=== PATIENT | female | born 1940 | race Caucasian/White ===

== ENCOUNTER 2020-04-22 16:16 | Emergency (ER) | payer MEDICARE, BC ==
[~2020-04-22] VITALS: Ht 162.6 cm; Wt 69.1 kg
[~2020-04-22 16:16] MED LIST: ACIPHEX20 MG PO; ALPRAZOLAM0.5 MG PO; ATENOLOL50 MG PO; BENICAR40 MG PO; BUSPAR DIVIDOSE15 MG PO; CALAN SR180 MG PO; CATAPRES 0.1MG0.1 MG PO; CATAPRES-T0.3 MG/24 TD; CELEBREX 200MG200 MG PO; CELEXA 20MG20 MG/TAB PO; CENTRUM SILVER1 TA1 PO; CIPRO 500MG TA500 MG PO; COZAAR100 MG PO; DARVOCET-N-101 UDTAB PO; DIOVAN160 MG PO; DIOVAN320 MG PO; EXFORGE 5/160 PO; EXFORGE PO; FIORICET 325 MG1 TA1 PO; FISH OIL CONC1000 MG PO; FISH OIL500 MG PO; FLEXERIL 1010 MG/TAB PO; GABAPENTIN100 M1 PO; GARLIC SUPPLEM300 MG PO; GARLIC1 TAB PO; GARLIQUE PO; GARLIQUE400 MG PO; GUAIFENESIN PO; HYDROCODONE PO; LASIX 20MG TABL20 MG PO; LASIX 40MG TABL40 MG PO; LASIX PO; LECITHIN; LECITHIN PO; LECITHIN SUPER420 MG PO; LEVOTHROID0.125 MG PO; LEVOTHYROXINE0.1 MG PO; LEVOXYL0.1 MG PO; LEVOXYL0.125 MG PO; LEVOXYL0.15 MG PO; LOVAZA1 GM PO; MIRALAX119G PO; MS CONTIN 115 MG/TAB PO; MS CONTIN 330 MG/TAB PO; NEURONTIN100 MG/CAP PO; NEURONTIN300 MG/CAP PO; NORVASC 5MG5 MG/TAB PO; OMEGA-31000 MG PO; OXY IR5 MG PO; REMERON30 MG PO; ROXICODONE15 MG PO; SYNTHROID0.1 MG/TAB PO; TYLENOL 325MG325 MG PO; TYLENOL ARTHRITIS PO; ULTRAM 50MG TAB50 MG PO; VENOFER IV; VITAMIN C500 MG PO; VITAMIN D; VITAMIN D 400400 IU PO; VITAMIN D PO; WELLBUTRIN XL300 M1 PO; XANAX .25M0.25 MG/TA PO; XANAX 0.5MG0.5 MG PO; XANAX0.25 MG PO
[2020-04-22 16:57] LABS: ARTERIAL BLD GAS O2 SATURATION 93.7 % (92-100); ARTERIAL BLD GAS TCO2 CT 16.9; ARTERIAL BLOOD GAS BASE EXCESS -15.5 (-2-2); ARTERIAL BLOOD GAS HCO3 15.2 meq/L (22-26); ARTERIAL BLOOD GAS PCO2 56.3 mmHg (35-45); ARTERIAL BLOOD GAS PO2 81.2 mmHg (80-100)
[2020-04-22 16:58] LABS: ARTERIAL BLOOD GAS pH 7.05 (7.35-7.45)
[2020-04-22 17:17] LABS: HEMATOCRIT 45.6 % (37.0-47.0); HEMOGLOBIN 14.2 g/dl (12.5-16.0); MEAN CELL VOLUME 110 fl (80.0-100.0); MEAN CORPUSCULAR HEMOGLOBIN 34 pg (27.0-31.0); MEAN CORPUSCULAR HGB CONC 31 g/dl (33.0-37.0); MEAN PLATELET VOLUME 10.1 fl (7.4-10.4); PLATELET COUNT 339 K/mm3 (130-400); RED BLOOD COUNT 4.15 M/mm3 (4.10-5.30); REDCELL DISTRIBUTION WIDTH-CV 14.9 % (11.5-14.5)
[2020-04-22 17:27] LABS: ALBUMIN 4.5 gm/dL (3.5-5.0); BILIRUBIN,TOTAL 0.5 mg/dL (0.0-1.0); CALCIUM 9.7 mg/dL (8.4-10.2); CREATININE, serum 4.66 (0.52-1.25); POTASSIUM 5.2 mmol/L (3.4-5.0); TOTAL PROTEIN 8.2 gm/dL (6.4-8.2)
[2020-04-22 17:30] LABS: COLLECTION METHOD CATHETER
[2020-04-22 17:36] LABS: ANISOCYTOSIS 1+; BAND 4 % (0-10); LYMPHOCYTE 7 % (20.0-51.0); NEUTROPHILS 88 % (42.0-75.2); PLATELET ESTIMATE NORMAL (NORMAL)
[2020-04-22 17:40] LABS: MUCOUS Present /lpf; PH 5 (5-8); SQUAMOUS EPITHELIAL 0-2 /hpf; URINE APPEARANCE Cloudy; URINE BACTERIA Rare /hpf; URINE BILIRUBIN Negative (NEGATIVE); URINE BLOOD 2+ (NEGATIVE); URINE COLOR Yellow; URINE GLUCOSE Negative (NEGATIVE); URINE KETONE Negative (NEGATIVE); URINE LEUKOCYTE ESTERASE 3+ (NEGATIVE); URINE NITRATE Positive (NEGATIVE); URINE PROTEIN(semi-quant) 2+ (NEGATIVE); URINE UROBILINOGEN Negative (NEGATIVE)
[2020-04-22 17:54] LABS: TROPONIN-I 7.24 ng/mL (0.000-0.035)
[2020-04-22 18:01] LABS: INR 1.1 (0.8-3.0); PROTHROMBIN TIME 11.9 SECONDS (9.7-12.8)
[2020-04-22 18:03] LABS: PARTIAL THROMBOPLASTIN TIME 29.1 SECONDS (26.0-37.0)
[2020-04-22 19:15] LABS: ARTERIAL BLD GAS O2 SATURATION 94.7 % (92-100); ARTERIAL BLOOD GAS BASE EXCESS -13.9 (-2-2); ARTERIAL BLOOD GAS HCO3 12.9 meq/L (22-26); ARTERIAL BLOOD GAS PCO2 33.5 mmHg (35-45); ARTERIAL BLOOD GAS PO2 75.2 mmHg (80-100); ARTERIAL BLOOD GAS pH 7.21 (7.35-7.45)
[2020-04-22 20:26] VITALS: BP 96/65; PULSE 66; TEMP 97.6
== END 2020-04-22 20:29 | disposition short-term general hospital (02) ==
LOC: COL.ER 16:16
PROVIDERS: Emergency Medicine
DX: J96.90 Respiratory failure, unspecified, unspecified whether with hypoxia or hypercapnia (principal); I21.4 Non-ST elevation (NSTEMI) myocardial infarction; I11.0 Hypertensive heart disease with heart failure; I50.9 Heart failure, unspecified; N19 Unspecified kidney failure; Z20.828 Contact with and (suspected) exposure to other viral communicable diseases; Z88.2 Allergy status to sulfonamides; Z79.01 Long term (current) use of anticoagulants
CPT/HCPCS: J0330; J0696; J1644; J1940; J2250

== ENCOUNTER → 2020-05-02 | Outpatient (CLI) | payer MEDICARE, BC | LOC: COL.VAS 13:15 | DX: N18.4 Chronic kidney disease, stage 4 (severe) (principal) ==

== ENCOUNTER 2020-06-12 01:34 | Inpatient (IN) | payer MEDICARE, BC ==
[~2020-06-12] VITALS: Ht 160 cm; Wt 70.4 kg
[2020-06-12] VITALS (621 sets, daily range): BP systolic 87–141; BP diastolic 43–78; PULSE 45–70; TEMP 97.1–98.7; O2SAT 31–100
[2020-06-12 02:07] LABS: BASO % 0.3 % (0.0-2.0); EOS % 0.1 % (0-4.0); GRAN # 8.7 (1.4-6.5); GRAN % 79.3 % (42.2-75.2); HEMOGLOBIN 11.1 g/dl (12.5-16.0); LYMPH # 1.5 (1.2-3.4); LYMPH % 13.2 % (20.0-51.0); MEAN CELL VOLUME 105 fl (80.0-100.0); MEAN CORPUSCULAR HEMOGLOBIN 33 pg (27.0-31.0); MEAN CORPUSCULAR HGB CONC 31 g/dl (33.0-37.0); MEAN PLATELET VOLUME 11.1 fl (7.4-10.4); MONO # 0.8 (0.1-0.6); MONO % 6.8 % (1.7-9.3); PLATELET COUNT 284 K/mm3 (130-400); REDCELL DISTRIBUTION WIDTH-CV 14.5 % (11.5-14.5)
[2020-06-12 02:09] LABS: HEMATOCRIT 35.6 % (37.0-47.0)
[2020-06-12 02:12] LABS: INR 1.2 (0.8-3.0); PROTHROMBIN TIME 13.7 SECONDS (9.7-12.8)
[2020-06-12 02:15] LABS: ALBUMIN 4.2 gm/dL (3.5-5.0); BILIRUBIN,TOTAL 0.7 mg/dL (0.0-1.0); CALCIUM 9.5 mg/dL (8.4-10.2); CREATININE, serum 7.06 (0.52-1.25)
[2020-06-12 02:17] LABS: POTASSIUM 7.4 mmol/L (3.4-5.0)
[2020-06-12 02:29] LABS: TROPONIN-I 0.276 ng/mL (0.000-0.035)
[2020-06-12 02:56] LABS: ARTERIAL BLD GAS O2 SATURATION 91.3 % (92-100); ARTERIAL BLD GAS TCO2 CT 27.4; ARTERIAL BLOOD GAS BASE EXCESS -1.4 (-2-2); ARTERIAL BLOOD GAS HCO3 25.8 meq/L (22-26); ARTERIAL BLOOD GAS PCO2 54.8 mmHg (35-45); ARTERIAL BLOOD GAS PO2 69.3 mmHg (80-100); ARTERIAL BLOOD GAS pH 7.29 (7.35-7.45)
[2020-06-12 04:15] LABS: CALCIUM 9.3 mg/dL (8.4-10.2); CREATININE, serum 6.78 (0.52-1.25)
[2020-06-12 04:16] LABS: POTASSIUM 6.7 mmol/L (3.4-5.0)
[2020-06-12 04:46] LABS: COLLECTION METHOD CLEAN CATCH
[2020-06-12 04:54] LABS: MUCOUS Present /lpf; PH 5 (5-8); URINE APPEARANCE Hazy; URINE BACTERIA Rare /hpf; URINE BILIRUBIN Negative (NEGATIVE); URINE BLOOD Negative (NEGATIVE); URINE COLOR Amber; URINE GLUCOSE Negative (NEGATIVE); URINE KETONE Negative (NEGATIVE); URINE LEUKOCYTE ESTERASE Negative (NEGATIVE); URINE NITRATE Negative (NEGATIVE); URINE PROTEIN(semi-quant) 1+ (NEGATIVE); URINE RBC 0-2 /hpf; URINE UROBILINOGEN Negative (NEGATIVE)
[2020-06-12 05:07] LABS: ARTERIAL BLD GAS O2 SATURATION 97.6 % (92-100); ARTERIAL BLD GAS TCO2 CT 20.8; ARTERIAL BLOOD GAS BASE EXCESS -3.3 (-2-2); ARTERIAL BLOOD GAS HCO3 19.9 meq/L (22-26); ARTERIAL BLOOD GAS PCO2 29.7 mmHg (35-45); ARTERIAL BLOOD GAS PO2 101.1 mmHg (80-100); ARTERIAL BLOOD GAS pH 7.44 (7.35-7.45)
--- NOTE | 2020-06-12 05:45 | NUR ---
PATIENT ARRIVES FROM ER, BEING PACED 50 MA BY 50 RATE, MONITOR SHOWS CAPTURE, PATIENT EXTREMITIES ARE COLD AND PALE TO TOUCH, PULSES WEAK IN RADIAL AREAS, FINGER NAIL BEDS PATTERSON, IV SODIUM BICARB INFUSING INTO RIGHT FOREARM, KETAMINE INFUSING INTO RIGHT EXTERNAL JUGULAR, PATIENT UNRESPONSIE RESPONDING TO THE VENTIALTON ONLY, MAINTAINING A B/P OF 110 SYSTOLIC, KAYEXELATE 15 GM ADMINISTERED INTO OG., WAS THEN NOTIFIED OF NO CHEST XRAY DONE, ONE ORDERED, PATIENT BEGINBS MOVING WRISTS AND FLUTERING EYE LIDS, IV PROPOFOLOL ORDERED AND ADMINISTERED IV AT 20 MCQ/KG/MIN. DR ENG IN ROOM PLACEING A LINE FOR DIAylsis INTO LEFT FEMORIS AREA, NURSES REPORT GIVEN TO SARAH MA, DR ALBERTINA MARR, SUKHDEEP DIAYLSIS NURSE ALL PRESENT
--- NOTE | 2020-06-12 07:25 | NUR ---
Report received from Jairo MA and care resumed. Pt getting dialyis at this time and Dr Eaton is at bedside.
--- NOTE | 2020-06-12 07:54 | NUR ---
Verbal order from Dr Eaton to decrease propofol due to low BP.
--- NOTE | 2020-06-12 08:15 | NUR ---
Dr Santiago at bedside and given update as requested.
[2020-06-12 08:27] LABS: CALCIUM 8.1 mg/dL (8.4-10.2); CREATININE, serum 3.53 (0.52-1.25)
[2020-06-12 08:33] LABS: POTASSIUM 3.1 mmol/L (3.4-5.0)
--- NOTE | 2020-06-12 11:24 | NUR ---
Manager Cardiac was able to stand outside of door and pray for patient.
--- NOTE | 2020-06-12 17:10 | NUR ---
PT OPENS EYES TO VOICE AND FOLLOWS ALL COMMANDS. EXPLAINED TO PT THAT SHE NEEDED TUNRED AND SHAKING HEAD NO, PROPOFOL INCREASED AT THIS TIME, NO NEURO CONCERNS.
[2020-06-12 17:57] LABS: HEPATITIS B SURFACE ANTIBODY <2.0 (()); HEPATITIS B SURFACE ANTIGEN Negative (Negative); HEPATITIS C VIRUS ANTIBODY Negative (Negative)
--- NOTE | 2020-06-12 19:24 | NUR ---
Report given to Jairo MA and care transfered.
[2020-06-12] MEDS ORDERED: ASPIRIN 81M81 MG/TA2 PO (21:11)
[2020-06-12] MEDS ORDERED: TYLENOL 500MG500 MG PO (21:13)
[2020-06-12] MEDS ORDERED: COREG 6.256.25 MG/TA PO (21:14)
[2020-06-12] MEDS ORDERED: PLAVIX 75MG TAB75 MG PO (21:16)
[2020-06-12] MEDS ORDERED: LASIX 80MG TABL80 MG PO ×2 (21:17→21:35)
[2020-06-12] MEDS ORDERED: HYCODAN 1.5 MG480 ML PO (21:20)
[2020-06-12] MEDS ORDERED: ZOFRAN 4MG T4 MG/TAB PO (21:21)
[2020-06-12] MEDS ORDERED: KLOR-CON20 MEQ PO (21:27)
[2020-06-12] MEDS ORDERED: NORCO 325 MG-51 TAB PO (21:28)
[2020-06-13] VITALS (762 sets, daily range): BP systolic 107–140; BP diastolic 52–85; PULSE 71–88; TEMP 97.3–98.6; O2SAT 84–100
[2020-06-13 00:43] LABS: ARTERIAL BLD GAS O2 SATURATION 93.3 % (92-100); ARTERIAL BLD GAS TCO2 CT 22.5; ARTERIAL BLOOD GAS BASE EXCESS 0.5 (-2-2); ARTERIAL BLOOD GAS HCO3 21.7 meq/L (22-26); ARTERIAL BLOOD GAS PCO2 24.6 mmHg (35-45); ARTERIAL BLOOD GAS PO2 64.9 mmHg (80-100); ARTERIAL BLOOD GAS pH 7.56 (7.35-7.45)
--- NOTE | 2020-06-13 00:49 | NUR ---
Called Patsy with ABG results. Received TORB to adjust tidal volume down to 400.
[2020-06-13 04:54] LABS: BASO # 0.1 (0.0-0.2); BASO % 0.9 % (0.0-2.0); EOS # 0.1 (0.0-0.7); EOS % 1.1 % (0-4.0); GRAN # 6.7 (1.4-6.5); HEMOGLOBIN 10.2 g/dl (12.5-16.0); LYMPH # 1.6 (1.2-3.4); LYMPH % 16.5 % (20.0-51.0); MEAN CORPUSCULAR HEMOGLOBIN 33 pg (27.0-31.0); MEAN CORPUSCULAR HGB CONC 33 g/dl (33.0-37.0); MEAN PLATELET VOLUME 10.7 fl (7.4-10.4); MONO # 1.2 (0.1-0.6); MONO % 12.3 % (1.7-9.3); PLATELET COUNT 226 K/mm3 (130-400); RED BLOOD COUNT 3.08 M/mm3 (4.10-5.30); REDCELL DISTRIBUTION WIDTH-CV 14.5 % (11.5-14.5)
[2020-06-13 04:58] LABS: HEMATOCRIT 30.5 % (37.0-47.0); MEAN CELL VOLUME 99 fl (80.0-100.0)
[2020-06-13 05:04] LABS: CALCIUM 8.4 mg/dL (8.4-10.2); CREATININE, serum 4.69 (0.52-1.25); MAGNESIUM 2.2 mg/dL (1.6-2.3); PHOSPHOROUS 4.9 mg/dL (2.5-4.5); POTASSIUM 3.5 mmol/L (3.4-5.0)
[2020-06-13 05:14] LABS: ARTERIAL BLD GAS O2 SATURATION 86.2 % (92-100); ARTERIAL BLD GAS TCO2 CT 22.9; ARTERIAL BLOOD GAS BASE EXCESS -0.8 (-2-2); ARTERIAL BLOOD GAS PCO2 29.9 mmHg (35-45); ARTERIAL BLOOD GAS PO2 51.6 mmHg (80-100); ARTERIAL BLOOD GAS pH 7.48 (7.35-7.45)
--- NOTE | 2020-06-13 05:35 | NUR ---
PATIENT ON VACATION SEDATION FOR 30 MINUTES WAS CAUGHT PULLING ON ET TUBE AWAKE ALERT AND FOLLOWS DIRECTIONS, SEDATION BACK UP TO 25 MCQ/KG/MIN
--- NOTE | 2020-06-13 07:05 | NUR ---
RECEIVED REPORT FROM FRANCESCA WEEMS. PT RESTING EASILY ON CURRENT VENT SETTINGS: AC, FIO2 45%, PEEP 5, RR 18, TV 400. FC PATENT AND DRAINING TO GRAVITY. OGT AT 60 CM TO LIS. OIL WELL SERVICE OPERATOR HELPER IN PLACE. VSS. SEE GTT FLOWSHEET.
--- NOTE | 2020-06-13 08:39 | NUR ---
DR TERAN NOTIFIED OF COVID TEST NEGATIVE, STATES TAKE PT OFF ISOLATION PRECAUTIONS. PHYSICIAN ALSO REQUESTS SEEDATION TO BE TURNED OFF AND TELL RT TO PREPARE FOR EXTUBATION. MANOHAR RT NOTIFIED.
--- NOTE | 2020-06-13 09:40 | NUR ---
SPOKE WITH VERONICA FROM [facility]AG [facility] AND MADHU KERR'S RN ABOUT TUNNEL CATH PLACEMENT PROCEDURE PLANNED FOR 06/14/20 AT 0800.
--- NOTE | 2020-06-13 09:48 | NUR ---
EXTUBATED BY RT AT THIS TIME, OGT PULLED OUT WELL. PLACED ON 3L VIA NC. POX 93%. TOLERATING WELL. ALL OTHER VSS. PT OREINTED TO SURROUNDINGS AND UPDATED ON WHAT HAPPENED AND POC. NODS HEAD IN UNDERSTANDING. TUNG, SON, CALLED WHILE RN IN ROOM AND GOT TO TALK TO PT FOR A FEW MINUTES AND UPDATED ON POC AND CURRENT VISITIGN POLICIES IN THE HOSPITAL. PT VOICE VERY RASPY AT THIS TIME AND ENCOURAGED TO REST VOCAL CORDS FOR A BIT WITH EXTUBATION, PT NODS IN UNDERSTANDING.
--- NOTE | 2020-06-13 09:58 | NUR ---
PT EXTUBATED PER ORDERS FROM DR. TERAN. PLACED ON 3 LITERS NASAL CANNULA. TOLERATED EXTUBATION WELL.
--- NOTE | 2020-06-13 10:20 | NUR ---
O2 INCREASED TO 4L VIA NC, POX 89%. DR KERR AT BEDSIDE FOR ASSESSMENT, DICUSSING POC WITH PT. PT VERBALIZES UNDERSTANDING. DISCUSSED DIET, NURSING BEDSIDE SWALLOW, AND PAIN MEDICATIONS WITH PHYSICIAN. NEW ORDERS RECEIVED.
--- NOTE | 2020-06-13 10:41 | NUR ---
DR TERAN AT BEDSIDE FOR ASSESSMENT.
--- NOTE | 2020-06-13 11:07 | NUR ---
[employer] Consultant contacted patient's son, Edwin (ph#[phone]) to complete intake as patient was just extubated this morning. Per Edwin, patient lives alone in [place], [place] and sees Dr. Adrian for primary care. Patient uses [facility] in [place] and Edwin advised either he or his brother scrap picker patient's medications for her. Patient has walkers at home and her bathroom is also equipped with grab bars. Edwin advised patient gets around pretty well at home and though ADLS can be challenging for her, patient has been getting them done independently. Edwin states that he and his brother, Svetlana (ph#[phone]) take turns staying overnight with patient. Edwin also advised his niece, Svetlana's daughter Christal Bautista will soon be staying with patient during the week to provide additional support. Edwin advised that patient will likely need dialysis upon discharge. Edwin reports that between family and friends, they will arrange transportation to and from dialysis for patient. Patient is and has two sons, Edwin and Svetlana. Edwin advised he is DPOA-HC for patient and will fax over copy of DPOA-HC to SW. Edwin states at this time the plan is for patient to hopefully return home upon discharge. AHMET will continue to follow.
[2020-06-13 11:14] LABS: ARTERIAL BLD GAS O2 SATURATION 90.5 % (92-100); ARTERIAL BLD GAS TCO2 CT 25.3; ARTERIAL BLOOD GAS HCO3 23.9 meq/L (22-26); ARTERIAL BLOOD GAS PCO2 45.5 mmHg (35-45); ARTERIAL BLOOD GAS PO2 65.9 mmHg (80-100); ARTERIAL BLOOD GAS pH 7.34 (7.35-7.45)
--- NOTE | 2020-06-13 11:21 | NUR ---
DR TERAN AT BEDSIDE REQUESTING PT TO BE PLACED ON BIPAP R/T ABG RESULTS AND PT MORE ABDOMINAL BREATHING, RT BROUGHT MACHINE TO BEDSIDE AND PLACES SETTINGS 15/8, FIO2 35% PER PHYSICIANS REQUESTS. RT AWARE OF ABG IN TWO HOURS.
--- NOTE | 2020-06-13 11:30 | NUR ---
DR KERR AT BEDSIDE FOR ASSESSMENT AND UPDATED ON DR TOWNSEND ASSESSMENT. NEW ORDERS RECEIVED.
[2020-06-13 13:24] LABS: ARTERIAL BLD GAS O2 SATURATION 94.2 % (92-100); ARTERIAL BLD GAS TCO2 CT 26.2; ARTERIAL BLOOD GAS HCO3 24.8 meq/L (22-26); ARTERIAL BLOOD GAS PCO2 45.9 mmHg (35-45); ARTERIAL BLOOD GAS PO2 77.3 mmHg (80-100); ARTERIAL BLOOD GAS pH 7.35 (7.35-7.45)
--- NOTE | 2020-06-13 13:40 | NUR ---
ATTEMPTED TO CALL ABG RESULTS TO DR TERAN, NO ANSWER.
--- NOTE | 2020-06-13 14:13 | NUR ---
NOTIFIED DR TERAN OF ABG RESULTS, STATES WANTS A REPEAST ABG AT 1630 AND WILL REASSESS AT THAT TIME ABOUT POC , RT NOTIFIED.
[2020-06-13 16:35] LABS: ARTERIAL BLD GAS O2 SATURATION 97.3 % (92-100); ARTERIAL BLD GAS TCO2 CT 26.7; ARTERIAL BLOOD GAS BASE EXCESS 0.9 (-2-2); ARTERIAL BLOOD GAS HCO3 25.4 meq/L (22-26); ARTERIAL BLOOD GAS PCO2 40.3 mmHg (35-45); ARTERIAL BLOOD GAS PO2 98.3 mmHg (80-100); ARTERIAL BLOOD GAS pH 7.42 (7.35-7.45)
--- NOTE | 2020-06-13 16:57 | NUR ---
NURSING BEDSIDE SWALLOW PERFORMED, PT USES STRAW AND SWALLOWS PILLS WITHOUT ANY ISSUES AT THIS TIME. NO DROP IN POX NOTED WHILE BIPAP WAS OFF BRIEFLY TO TAKE MEDICATION.
--- NOTE | 2020-06-13 17:10 | NUR ---
DR TERAN NOTIFIED OF ABG RESULTS, STATES NO INTUBATION AT THIS TIME AND HAVE PT WEAR BIPAP TONIGHT AND WILL REEVALUATE PLACING ON NC TOMORROW AM. PT MADE AWARE OF POC AND VERBALIZED UNDERSTANDING.
--- NOTE | 2020-06-13 17:30 | NUR ---
SPOKE TO DR TERAN ABOUT STAYING ON BIPAP AND BICARB GTT THROGH THE NIGHT AND HE SAYS YES AND WILL REEVALUATE IN THE AM.
--- NOTE | 2020-06-13 21:10 | NUR ---
PATIENT ANXIOUS AND COMPLAINED OF MASK AND BRIDGE OF NOSE, SPECIFIC ASKS FOR xANAX, AND MY OXY CODONE, XANAX AND HYDROCODONE ADMINISTERED, PATIENT IS BACK TO SLEEP
[2020-06-14] VITALS (828 sets, daily range): BP systolic 113–144; BP diastolic 60–87; PULSE 86–98; TEMP 96.8–98.6; O2SAT 60–100
[2020-06-14 05:02] LABS: ARTERIAL BLD GAS O2 SATURATION 96.4 % (92-100); ARTERIAL BLD GAS TCO2 CT 28.8; ARTERIAL BLOOD GAS BASE EXCESS 2.6 (-2-2); ARTERIAL BLOOD GAS HCO3 27.5 meq/L (22-26); ARTERIAL BLOOD GAS PCO2 43.2 mmHg (35-45); ARTERIAL BLOOD GAS PO2 87.2 mmHg (80-100); ARTERIAL BLOOD GAS pH 7.42 (7.35-7.45)
[2020-06-14 05:05] LABS: BASO # 0.1 (0.0-0.2); BASO % 0.8 % (0.0-2.0); EOS # 0.2 (0.0-0.7); EOS % 2.4 % (0-4.0); GRAN # 5.3 (1.4-6.5); GRAN % 65.9 % (42.2-75.2); LYMPH # 1.5 (1.2-3.4); LYMPH % 19.1 % (20.0-51.0); MEAN CELL VOLUME 102 fl (80.0-100.0); MEAN CORPUSCULAR HGB CONC 32 g/dl (33.0-37.0); MEAN PLATELET VOLUME 10.4 fl (7.4-10.4); MONO # 0.9 (0.1-0.6); MONO % 11.7 % (1.7-9.3); PLATELET COUNT 216 K/mm3 (130-400); RED BLOOD COUNT 3.05 M/mm3 (4.10-5.30); REDCELL DISTRIBUTION WIDTH-CV 14.5 % (11.5-14.5)
[2020-06-14 05:06] LABS: INR 1.2 (0.8-3.0); PROTHROMBIN TIME 13.6 SECONDS (9.7-12.8)
[2020-06-14 05:07] LABS: HEMATOCRIT 31.1 % (37.0-47.0); HEMOGLOBIN 9.9 g/dl (12.5-16.0); MEAN CORPUSCULAR HEMOGLOBIN 32 pg (27.0-31.0)
[2020-06-14 05:13] LABS: CREATININE, serum 4.84 (0.52-1.25); MAGNESIUM 2.1 mg/dL (1.6-2.3); PHOSPHOROUS 7.3 mg/dL (2.5-4.5); POTASSIUM 3.1 mmol/L (3.4-5.0)
--- NOTE | 2020-06-14 07:10 | NUR ---
Report received from Jairo MA and care resumed.
--- NOTE | 2020-06-14 07:40 | NUR ---
Pt to senior label specialist at this time for tunnelled dialysis line placement.
--- NOTE | 2020-06-14 08:14 | NUR ---
SEE MERGE DOCUMENTATION FOR MEDICATION ADMINISTRATION TIMES AND INTRA/POST PROCEDURE SEDATION ASSESSMENTS.
[2020-06-14 13:00] LABS: IRON,SERUM 33 ug/dL (35-150)
[2020-06-14 13:09] LABS: TOTAL IRON BINDING CAPACITY 319 ug/dL (265-497)
--- NOTE | 2020-06-14 19:43 | NUR ---
Report given to Maia MA and care transfered.
[2020-06-15] VITALS (562 sets, daily range): BP systolic 109–146; BP diastolic 51–74; PULSE 81–100; TEMP 97.6–99.1; O2SAT 82–100
[2020-06-15 04:57] LABS: ARTERIAL BLD GAS O2 SATURATION 97.3 % (92-100); ARTERIAL BLD GAS TCO2 CT 27.5; ARTERIAL BLOOD GAS BASE EXCESS 1.1 (-2-2); ARTERIAL BLOOD GAS HCO3 26.2 meq/L (22-26); ARTERIAL BLOOD GAS PCO2 43.5 mmHg (35-45); ARTERIAL BLOOD GAS PO2 100.1 mmHg (80-100)
[2020-06-15 05:16] LABS: BASO # 0.1 (0.0-0.2); BASO % 0.7 % (0.0-2.0); EOS # 0.1 (0.0-0.7); EOS % 1.3 % (0-4.0); GRAN % 73.7 % (42.2-75.2); HEMOGLOBIN 10.7 g/dl (12.5-16.0); LYMPH # 1.3 (1.2-3.4); LYMPH % 13.8 % (20.0-51.0); MEAN CELL VOLUME 105 fl (80.0-100.0); MEAN CORPUSCULAR HEMOGLOBIN 32 pg (27.0-31.0); MEAN CORPUSCULAR HGB CONC 31 g/dl (33.0-37.0); MEAN PLATELET VOLUME 10.4 fl (7.4-10.4); MONO % 10.2 % (1.7-9.3); PLATELET COUNT 216 K/mm3 (130-400); RED BLOOD COUNT 3.33 M/mm3 (4.10-5.30); REDCELL DISTRIBUTION WIDTH-CV 14.3 % (11.5-14.5)
[2020-06-15 05:27] LABS: CALCIUM 8.8 mg/dL (8.4-10.2); CREATININE, serum 3.46 (0.52-1.25); MAGNESIUM 2.1 mg/dL (1.6-2.3); PHOSPHOROUS 6.9 mg/dL (2.5-4.5); POTASSIUM 3.7 mmol/L (3.4-5.0)
--- NOTE | 2020-06-15 07:01 | NUR ---
PT rested well throughout the night and asked questions about POC, all answered. PT son also updated earlier in the evening.
--- NOTE | 2020-06-15 17:00 | NUR ---
Patient to room 358 from ICU on medical floor bed. Patient A&Ox3. IV CDI. Dialysis catheter size right upper chest CDI, bruising around the site. Fistula NUNO CDI. Nurse oriented patient to location, room and call light. No further needs expressed from the patient. Call light within reach
--- NOTE | 2020-06-15 20:00 | NUR ---
Report received, assumed care for overnight houseperson. Assessment complete. VS stable. A&Ox3. C/O pain to back/neck-rating pain 8/10 on pain scale-described as constant throbbing. [place] given per dr order. Dyspnea on exertion. Pursed lip breathing-O2@2L/NC with O2 sats 92-94%. Right chest dialysis cath-dressing CDI. INT to left IJ-flushes without difficulty. Noted to have extensive bruising to right side of chest/shoulder/back. Voiding without difficulty post foster removal. Tolerating PO. Denies needs. Call light in reach. Will monitor.
--- NOTE | 2020-06-15 22:25 | NUR ---
Called stating she was having an anxiety attack-requesting PRN xanax dose. Given per dr vasquez. RT at bedside to apply BiPaP. This nurse sat with patient for approx 20minutes to help calm down. Resting with eyes closed. Will monitor.
[2020-06-16 03:15] VITALS: BP 137/69; PULSE 87; TEMP 98.3
--- NOTE | 2020-06-16 04:00 | NUR ---
Rested well later this shift after HS meds/xanax dosing. VS remain stable. Continues to wear BiPaP. No s/s of distress noted. Will monitor.
[2020-06-16 06:58] VITALS: BP 109/54; PULSE 77; TEMP 97.3
[2020-06-16 10:50] LABS: PLEURAL FLUID RBC 2000 /mm3 (0-0); PLEURAL FLUID WBC 199 /mm3
--- NOTE | 2020-06-16 10:56 | NUR ---
DR TERAN PERFORMED A THORA ON PATIENTS RIGHT LUNG, 900 ML OF FLUID TAKEN OFF. PATIENT TOLERATED WELL. PARUL WILL PERFORM ANOTHER THORA ON LEFT LUNG ON 06/17. XRAY PERFORMED, RESULTS PENDING. PATIENT TAKEN TO DIALYSIS. PATIENT REPORTED PAIN ON HER FISTULA WHICH IS LOCATED ON HER LEFT UPPER EXTREMITY. RATING A 9/10. FISTULA SLIGHTLY WARM, NO REDNESS, SWELLING, OR DISCHARGE PRESENT. WILL HAVE BEDROSE TAKE A LOOK AT IT. NORCO GIVEN. WILL CONTINUE TO MONITOR.
[2020-06-16 11:26] LABS: GLUCOSE,PLEURAL FLUID 123 mg/dL
[2020-06-16 11:27] LABS: PLEURAL FLUID COLOR YELLOW
[2020-06-16 11:28] LABS: PLEURAL FLUID APPEARANCE CLEAR
[2020-06-16 11:58] LABS: TOTAL PROTEIN,PLEURAL FLUID < 2.0 gm/dL
[2020-06-16 13:13] LABS: BASO % 0.5 % (0.0-2.0); EOS # 0.3 (0.0-0.7); EOS % 3.1 % (0-4.0); GRAN # 6.1 (1.4-6.5); GRAN % 74.6 % (42.2-75.2); LYMPH % 11.8 % (20.0-51.0); MEAN CELL VOLUME 104 fl (80.0-100.0); MEAN CORPUSCULAR HGB CONC 30 g/dl (33.0-37.0); MEAN PLATELET VOLUME 10.8 fl (7.4-10.4); MONO # 0.8 (0.1-0.6); MONO % 9.6 % (1.7-9.3); PLATELET COUNT 195 K/mm3 (130-400); RED BLOOD COUNT 3.07 M/mm3 (4.10-5.30); REDCELL DISTRIBUTION WIDTH-CV 13.9 % (11.5-14.5)
[2020-06-16 13:14] LABS: HEMOGLOBIN 9.7 g/dl (12.5-16.0); MEAN CORPUSCULAR HEMOGLOBIN 32 pg (27.0-31.0)
[2020-06-16 13:33] LABS: CALCIUM 8.6 mg/dL (8.4-10.2); CREATININE, serum 3.92 (0.52-1.25); POTASSIUM 3.5 mmol/L (3.4-5.0)
--- NOTE | 2020-06-16 14:48 | NUR ---
SPOKE WITH PATIENT'S SON REGARDING PATIENTS CURRENT CONDITION. EXPLAINED TO HIM THAT SHE RECIEVED A THORA THIS AM ON THE RIGHT LUNG AND THAT SHE WILL BE GETTING THE SAME PROCEDURE DONE 06/17 IN THE AM. EXPLAINED TO HIM THAT PATIENT IS CURRENTLY IN DYALISIS, BUT HAS BEEN DOING VERY WELL TODAY. PATIENT'S SON STATED THAT HE WILL CALL AND SPEAK WITH HER AT A LATER TIME.
[2020-06-16 15:30] VITALS: BP 112/56; PULSE 78; TEMP 98.4
--- NOTE | 2020-06-16 17:54 | NUR ---
PATIENT SITTING UP IN BED EATING. DENIES ANY FURTHER NEEDS AT THIS TIME. BED IN LOWEST POSITION, BED ALARM ON, CALL LIGHT WITHIN REACH. WILL CONTINUE TO MONITOR.
--- NOTE | 2020-06-16 19:15 | NUR ---
Report received, assumed care for steward/stewardess night. Assessment complete. VS stable. A&Ox3. C/O pain to back/neck-rating pain 01/27-[place] given per dr order. Right chest dialysis cath with tegaderm-CDI. IV to left IJ flushes without difficulty. O2 sat 94% on RA. Denies nausea. Noted to have bruising to right chest/shoulder and back. Plan of care discussed for this shift to include HS meds/BiPaP/calling for questions/concerns. Verbalizes understanding. Call light in reach/bed alarm on. Will monitor.
[2020-06-16 19:47] VITALS: BP 128/68; PULSE 106; TEMP 98.4
--- NOTE | 2020-06-16 22:25 | NUR ---
Called c/o "anxiety attack." Requesting xanax. Sat with patient for approx 30 minutes. Xanax given per dr order. Calmed down once BiPaP on. Call light in reach. Will monitor.
[2020-06-17] VITALS (14 sets, daily range): BP systolic 105–132; BP diastolic 50–72; PULSE 79–101; TEMP 97.9–99.2
--- NOTE | 2020-06-17 05:00 | NUR ---
Slept most of shift since receiving xanax and BiPaP being applied. Denied nausea. Received norco x1 for neck/back pain. Vitals remained stable. Call light in reach. WIll monitor.
[2020-06-17 12:13] LABS: PLEURAL FLUID RBC 0 /mm3 (0-0); PLEURAL FLUID WBC 146 /mm3
[2020-06-17 12:17] LABS: GLUCOSE,PLEURAL FLUID 127 mg/dL
[2020-06-17 12:18] LABS: PLEURAL FLUID APPEARANCE CLEAR; PLEURAL FLUID COLOR YELLOW
[2020-06-17 12:20] LABS: TOTAL PROTEIN,PLEURAL FLUID < 2.0 gm/dL
--- NOTE | 2020-06-17 19:08 | NUR ---
Patient has done well post thora, VSS. left EJ without complications. Eccymosis to LLQ noted. Edema to ASHTYN +2 pitting. Patient requested pain mediction this am for pain 5/10 generalized, medicaitons given per orders.
--- NOTE | 2020-06-17 21:00 | NUR ---
PT A/O X3, IN BED WITH HOB ELEVATED, C/O BACK PAIN, GAVE PRN NORCO FOR PAIN. PT ALSO REQUEST XANAX. PT'S RIGHT ARM STILL SWOLLEN. PT HAS NO FURTHER NEEDS, CALL LIGHT WITHIN REACH AND BED ALARM ON.
[2020-06-18 01:20] VITALS: BP 128/70; PULSE 88; TEMP 97.9
[2020-06-18 05:00] VITALS: BP 126/74; PULSE 84; TEMP 97
[2020-06-18 07:28] VITALS: BP 105/53; PULSE 80; TEMP 98.3
--- NOTE | 2020-06-18 07:55 | NUR ---
PT SLEPT WELL WITH NO ISSUES, CALL LIGHT WITHIN REACH AND BED ALARM ON.
[2020-06-18 10:04] LABS: BASO % 0.4 % (0.0-2.0); EOS # 0.4 (0.0-0.7); EOS % 4.6 % (0-4.0); GRAN # 6.7 (1.4-6.5); GRAN % 70.6 % (42.2-75.2); HEMOGLOBIN 10.3 g/dl (12.5-16.0); LYMPH # 1.5 (1.2-3.4); LYMPH % 16.1 % (20.0-51.0); MEAN CELL VOLUME 106 fl (80.0-100.0); MEAN CORPUSCULAR HEMOGLOBIN 32 pg (27.0-31.0); MEAN CORPUSCULAR HGB CONC 30 g/dl (33.0-37.0); MEAN PLATELET VOLUME 10.9 fl (7.4-10.4); MONO # 0.8 (0.1-0.6); PLATELET COUNT 198 K/mm3 (130-400); RED BLOOD COUNT 3.23 M/mm3 (4.10-5.30); REDCELL DISTRIBUTION WIDTH-CV 13.7 % (11.5-14.5)
[2020-06-18 10:05] LABS: HEMATOCRIT 34.3 % (37.0-47.0)
--- NOTE | 2020-06-18 10:09 | NUR ---
PT TOILETTED ON BEDSIDE COMMODE AND TRANSPORTED TO DIALYSIS VIA BED @ 0930.
[2020-06-18 10:13] LABS: CREATININE, serum 3.46 (0.52-1.25); POTASSIUM 3.7 mmol/L (3.4-5.0)
[2020-06-18] MEDS ORDERED: PHOSLO667 MG PO (11:26)
[2020-06-18] MEDS ORDERED: LASIX 80MG TABL80 MG PO (11:29)
[2020-06-18] MEDS ORDERED: PEPCID 20MG TAB20 MG PO (11:30)
--- NOTE | 2020-06-18 11:49 | NUR ---
plan to dc to home. taken off 1.5l nc for trial and dipped to 89% on RA at rest in less than 10 mins. coordinating with clinical social worker for home oxygen. pt still in dialysis.
[2020-06-18 12:02] VITALS: BP 117/63; PULSE 92; TEMP 98
--- NOTE | 2020-06-18 13:35 | NUR ---
PT SAT UP ON SIDE OF BED INDEPENDENTLY AFTER DIALYSIS DUE TO BACK HURTING. WAS ABLE TO AMBULATE FROM BED TO NEXT ROOM'S DOOR WITH STANDBY ASSIST AND WALKER. APPROX 40 FEET. NO HANDS-ON ASISSTANCE REQUIRED. PT DENIED SOB, HEADACHE, WEAKNESS. AMBULATED WITH HOME TENNIS SHOES.
--- NOTE | 2020-06-18 14:00 | NUR ---
AHMET spoke with son Edwin. Edwin provided that patient obtains HH services from [facility] agency. Documentation printed and faxed to [facility] for review. AHMET will continue to follow.
--- NOTE | 2020-06-18 14:02 | NUR ---
AHMET was informed by Dr. Eaton to assist in seeing if patient has a wheelchair to assist with transfers to dialysis. SW called patient's son Edwin and he provided that patient does have a wheelchair. SW to inform Dr. Eaton that patient does have a a wheelchair. AHMET will continue to follow.
--- NOTE | 2020-06-18 14:04 | NUR ---
AHMET spoke with son Edwin about support needed for patient upon DC. Edwin stated that he his , his brother and niece will be with patient to assist with continued care, family support and assistance to and from dialysis. AHMET will continue to follow.
[2020-06-18 14:13] LABS: ARTERIAL BLD GAS TCO2 CT 24.8; ARTERIAL BLOOD GAS BASE EXCESS 0.7 (-2-2); ARTERIAL BLOOD GAS HCO3 23.8 meq/L (22-26); ARTERIAL BLOOD GAS PCO2 33.5 mmHg (35-45); ARTERIAL BLOOD GAS PO2 59.8 mmHg (80-100); ARTERIAL BLOOD GAS pH 7.47 (7.35-7.45)
--- NOTE | 2020-06-18 14:40 | NUR ---
Pt ambulates to bathroom with walker and standby assist from this nurse without difficulties, pt did c/o pain in back while sitting on commode, Ultram given per orders/pt request. Pt had a large BM and then ambulates back to bed with walker and standby assist of this nurse. Denies any further needs at this time, 1.5L O2 via NC placed on per orders, bed alarm on and Call light within reach.
--- NOTE | 2020-06-18 14:52 | NUR ---
AHMET informed that patient did not qualify for home air. AHMET contacted Dr. Eaton and Dr. Eaton stated that he confirmed the information with Dr. Santiago. AHMET asked Dr. Eaton to assist with patient obtain HH orders for PT. Documentation faxed to [facility]. AHMET will continue to follow
--- NOTE | 2020-06-18 15:27 | NUR ---
ABG results reviewed by Dr Eaton per Kathryn in nursing home social worker and no recommendation for home oxygen. pt family to pick her up @ 1615 per Kathryn. pt excited to go home. seen by Dr Santiago and no Bipap recommendation either. pt agreeable with plan. ambulated to commode in bathroom standby assist by nurse Nikki
[2020-06-18 16:10] VITALS: BP 128/75; PULSE 102; TEMP 98.3
--- NOTE | 2020-06-18 16:59 | NUR ---
AHMET assisted with setting up oxygen for patient's home with [place]. Documentation faxed and family informed of plan. Updated information faxed to [facility]. Family here to assist with transfer. Nothing further.
--- NOTE | 2020-06-18 17:21 | NUR ---
discharge instructions reviewed with patient and with sons Svtelana and Edwin. informed of dialysis chair time and new scripts. Pharmacist Christian approved for this nurse to take extra doses of phoslo for pt to discharge with instead of pharmacy pre-packaging needed doses since she stated she is unable to pick remover her meds from pharmacy in [place] until family is available "after dinner". 3 extra doses given and family made aware. EJ IV dc'd without concerns. pt ambulated into vehicle with contact guard assist. sent home with oxygen tank from [facility] in [place] due to dipping to 88% on RA at rest. oxygen to be delivered to her home tonight per case management.
== END 2020-06-18 17:15 | disposition home or self-care (01) | DRG 673 ==
LOC: COL.ER 01:34 → ICU 05:08 → MEDICAL 06-15 12:00
PROVIDERS: Emergency Medicine; Internal Medicine Pulmonary Disease; ADMIT Internal Medicine Nephrology
PROC: 0JH63XZ Insertion of Tunneled Vascular Access Device into Chest Subcutaneous Tissue and Fascia, Percutaneous Approach (ICD-10-PCS; principal; 2020-06-12)
PROC: 02HV33Z Insertion of Infusion Device into Superior Vena Cava, Percutaneous Approach (ICD-10-PCS; 2020-06-12)
PROC: 5A1D70Z Performance of Urinary Filtration, Intermittent, Less than 6 Hours Per Day (ICD-10-PCS; 2020-06-12)
PROC: 0BH17EZ Insertion of Endotracheal Airway into Trachea, Via Natural or Artificial Opening (ICD-10-PCS; 2020-06-12)
PROC: 5A1945Z Respiratory Ventilation, 24-96 Consecutive Hours (ICD-10-PCS; 2020-06-12)
PROC: 0W993ZZ Drainage of Right Pleural Cavity, Percutaneous Approach (ICD-10-PCS; 2020-06-16)
PROC: 0W9B3ZZ Drainage of Left Pleural Cavity, Percutaneous Approach (ICD-10-PCS; 2020-06-16)
DX: N17.9 Acute kidney failure, unspecified (principal); J96.21 Acute and chronic respiratory failure with hypoxia; J96.22 Acute and chronic respiratory failure with hypercapnia; I50.22 Chronic systolic (congestive) heart failure; I13.2 Hypertensive heart and chronic kidney disease with heart failure and with stage 5 chronic kidney disease, or end stage renal disease; E87.2 Acidosis; E87.5 Hyperkalemia; N18.6 End stage renal disease; R00.1 Bradycardia, unspecified; M19.90 Unspecified osteoarthritis, unspecified site; F32.9 Major depressive disorder, single episode, unspecified; E03.9 Hypothyroidism, unspecified; F41.9 Anxiety disorder, unspecified; J44.9 Chronic obstructive pulmonary disease, unspecified; M81.0 Age-related osteoporosis without current pathological fracture; I95.9 Hypotension, unspecified; D63.1 Anemia in chronic kidney disease; Z20.828 Contact with and (suspected) exposure to other viral communicable diseases; Z87.891 Personal history of nicotine dependence; Z88.2 Allergy status to sulfonamides
CPT/HCPCS: J0610; J0690; J1170; J1644; J1815; J2250; J2704; J3010; J3480; J7030; J7050; J7070; Q5105

== ENCOUNTER 2020-10-20 10:37 | Inpatient (IN) | payer MEDICARE, BC ==
[~2020-10-20] VITALS: Ht 160 cm; Wt 58.5 kg
[2020-10-20] VITALS (343 sets, daily range): BP systolic 72–145; BP diastolic 42–79; PULSE 72–86; TEMP 98.5–99.5; O2SAT 86–98
[~2020-10-20 10:37] MED LIST changes: +ASPIRIN 81M81 MG/TA2 PO; +COREG 6.256.25 MG/TA PO; +HYCODAN 1.5 MG480 ML PO; +KLOR-CON20 MEQ PO; +LASIX 80MG TABL80 MG PO; +NORCO 325 MG-51 TAB PO; +PEPCID 20MG TAB20 MG PO; +PHOSLO667 MG PO; +PLAVIX 75MG TAB75 MG PO; +TYLENOL 500MG500 MG PO; +ZOFRAN 4MG T4 MG/TAB PO
[2020-10-20 11:37] LABS: ARTERIAL BLD GAS TCO2 CT 23.8; ARTERIAL BLOOD GAS BASE EXCESS -4.1 (-2-2); ARTERIAL BLOOD GAS HCO3 22.4 meq/L (22-26); ARTERIAL BLOOD GAS PCO2 46.5 mmHg (35-45); ARTERIAL BLOOD GAS PO2 60.6 mmHg (80-100)
[2020-10-20 11:52] LABS: BASO % 0.4 % (0.0-2.0); GRAN % 87.1 % (42.2-75.2); HEMOGLOBIN 11.5 g/dl (12.5-16.0); LYMPH # 0.5 (1.2-3.4); LYMPH % 4.6 % (20.0-51.0); MEAN CELL VOLUME 113 fl (80.0-100.0); MEAN CORPUSCULAR HEMOGLOBIN 35 pg (27.0-31.0); MEAN CORPUSCULAR HGB CONC 31 g/dl (33.0-37.0); MONO # 0.7 (0.1-0.6); PLATELET COUNT 242 K/mm3 (130-400); RED BLOOD COUNT 3.26 M/mm3 (4.10-5.30); REDCELL DISTRIBUTION WIDTH-CV 18.9 % (11.5-14.5)
[2020-10-20 11:53] LABS: HEMATOCRIT 36.9 % (37.0-47.0)
[2020-10-20 12:03] LABS: ALBUMIN 4.6 gm/dL (3.5-5.0); BILIRUBIN,TOTAL 0.8 mg/dL (0.0-1.0); CALCIUM 11.1 mg/dL (8.4-10.2); CREATININE, serum 4.86 (0.52-1.25); POTASSIUM 4.2 mmol/L (3.4-5.0); TOTAL PROTEIN 8.2 gm/dL (6.4-8.2)
[2020-10-20 12:15] LABS: TROPONIN-I 0.032 ng/mL (0.000-0.035)
[2020-10-20] MEDS ORDERED: ONE-A-DAY ESSE1 EACH PO (14:36)
[2020-10-20] MEDS ORDERED: NATURE'S BLE1000 MCG PO (14:37)
[2020-10-20] MEDS ORDERED: RENVELA800 MG PO (14:38)
[2020-10-20] MEDS ORDERED: LIPITOR 40MG TA40 MG PO (14:38)
[2020-10-20] MEDS ORDERED: TRIPHROCAPS SOFT1 MG PO (14:39)
[2020-10-20 15:01] LABS: INR 1.1 (0.8-3.0); PROTHROMBIN TIME 12.5 SECONDS (9.7-12.8)
[2020-10-20 15:03] LABS: PARTIAL THROMBOPLASTIN TIME 31.9 SECONDS (26.0-37.0)
--- NOTE | 2020-10-20 19:42 | NUR ---
Assessment completed and charted. Patient reporting back pain 12/28. Recently given morphine. Repositioned at this time. Denies needs. Call light in reach.
--- NOTE | 2020-10-20 20:20 | NUR ---
Reports ABD and back pain. Given PRN morphine at this time.
--- NOTE | 2020-10-20 20:43 | NUR ---
Reports continued ABD pain. Would like tums. Spoke with Dr. Eaton. No to tums. Give GI cocktail 15ml. Order added.
--- NOTE | 2020-10-20 21:56 | NUR ---
Received phone call from Dr. Eaton. Patient to transfer to medical floor. House supervisior notified.
--- NOTE | 2020-10-20 22:19 | NUR ---
Patient blood pressure 75/42. Spoke with Dr. Eaton. Discontinue morphine (last dose given 2029). Do not call if blood pressures low as long as patient is asymptomatic and cognition okay. Hold xanax tonight. Patient okay, alert and orientated. Call light in reach.
[2020-10-21] VITALS (22 sets, daily range): BP systolic 103–123; BP diastolic 50–77; PULSE 74–92; TEMP 97.4–98.6; O2SAT 91–96
--- NOTE | 2020-10-21 04:20 | NUR ---
Report given to FRANCESCA Nettles. Patient taken to medical floor at [id number]
--- NOTE | 2020-10-21 04:25 | NUR ---
Received report form Whit. Patient up in the room via wheelchair. She is alert and oriented. With O2 at 2lpm via NC. She denies pain.
--- NOTE | 2020-10-21 05:55 | NUR ---
Patient weren't able to sleep after her transfer. She did complain of back pain with pain score of 7/10. Tylenol given.
[2020-10-21 06:33] LABS: BASO % 0.4 % (0.0-2.0); GRAN # 5.9 (1.4-6.5); GRAN % 76.4 % (42.2-75.2); HEMATOCRIT 37.3 % (37.0-47.0); HEMOGLOBIN 11.6 g/dl (12.5-16.0); LYMPH % 12.5 % (20.0-51.0); MEAN CELL VOLUME 112 fl (80.0-100.0); MEAN CORPUSCULAR HEMOGLOBIN 35 pg (27.0-31.0); MEAN CORPUSCULAR HGB CONC 31 g/dl (33.0-37.0); MEAN PLATELET VOLUME 10.1 fl (7.4-10.4); MONO # 0.8 (0.1-0.6); MONO % 10.2 % (1.7-9.3); PLATELET COUNT 221 K/mm3 (130-400); RED BLOOD COUNT 3.34 M/mm3 (4.10-5.30); REDCELL DISTRIBUTION WIDTH-CV 18.8 % (11.5-14.5)
[2020-10-21 06:44] LABS: ALBUMIN 4.4 gm/dL (3.5-5.0); CALCIUM 10.2 mg/dL (8.4-10.2); CREATININE, serum 3.45 (0.52-1.25); PHOSPHOROUS 3.9 mg/dL (2.5-4.5); POTASSIUM 4.3 mmol/L (3.4-5.0)
--- NOTE | 2020-10-21 08:06 | NUR ---
Pt assessment complete. Pt is sitting up in bed eating breakfast, she is A/O x4. Her breathing is even and unlabored on 3L O2 via NC. Pt denies SOB. Reports chronic back pain. No N/V. POC discussed with patient, will have dialysis this morning. Pt reports she does not take the Renvela dose that is ordered, patient took one and would like to discuss with Dr. Eaton. No needs at this time. Call light within reach.
--- NOTE | 2020-10-21 15:58 | NUR ---
Trialed patient off of O2, sat 92% at highest. Will continue to monitor. POC discussed with patient, including pulmonology consult.
--- NOTE | 2020-10-21 16:01 | NUR ---
Nailhead Operator met with patient and her son, Svetlana (ph#[phone]) to discuss discharge planning. Patient lives alone in [place] and sees Dr. Adrian for primary care. Patient is a dialysis patient and has dialysis in [place]. Patient obtains her medications from [facility] in [place] with no difficulties. Patient has a four wheeled walker and also has an oxygen concentrator from [facility] in [place]. Patient states she hasn't been needing to wear the oxygen lately. Patient is independent with ADLS at home. Patient has DPOA-HC which designates her sons, Svetlana and Edwin (ph#[phone]). SW reviewed PT recommendation for a standard front wheeled walker and home health PT. Patient is agreeable to both. Patient would like the walker ordered from either [facility] or [facility], depending on when she discharges. Patient reports she has had [facility] in the past and was open to them again. AHMET faxed referral to [facility]. AHMET completed FWW order and placed it on patient's chart for Dr. Eaton to sign. AHMET contacted Dr. Eaton and notified him that the FWW order would be on the order for him to sign. Discharge Plan: Home with [facility] and a front wheeled walker.
--- NOTE | 2020-10-21 20:00 | NUR ---
Report received, assumed care for night coordinator. Assessment complete. VS stable. A&Ox3. Denies nausea. States shortness of breath is better-currently on 1L/NC-with sats in the mid to high 90s. Plan of care discussed for thoracentesis tomorrow-verbalizes understanding. Asking about when Pulm will see her-informed will be here around 1030 to do thora. Denies any questions/concerns at this time. Call light in reach. WIll monitor.
--- NOTE | 2020-10-21 20:15 | NUR ---
Called requesting tylenol for bedtime due to chronic back pain. Rating pain 4/10 described as constant ache. Tylenol given per order. Will continue to monitor.
[2020-10-22] VITALS (7 sets, daily range): BP systolic 108–140; BP diastolic 50–69; PULSE 75–87; TEMP 97.7–98.7
--- NOTE | 2020-10-22 04:30 | NUR ---
Finally fell asleep later this shift. States she is a night owl. VS remained stable. O2@1L/NC with high 90 O2 saturation. Discussed plan for ashley today earlier in shift-states she has not seen Pulm yet and would like to discuss with them. Discussed approximate time frame of 1030 as well. No other c/o. Call light in reach. Will monitor.
[2020-10-22 06:10] LABS: BASO # 0.1 (0.0-0.2); BASO % 0.6 % (0.0-2.0); EOS # 0.2 (0.0-0.7); EOS % 2.7 % (0-4.0); GRAN # 5.5 (1.4-6.5); HEMOGLOBIN 10.7 g/dl (12.5-16.0); LYMPH # 1.6 (1.2-3.4); MEAN CELL VOLUME 114 fl (80.0-100.0); MEAN CORPUSCULAR HEMOGLOBIN 35 pg (27.0-31.0); MEAN CORPUSCULAR HGB CONC 31 g/dl (33.0-37.0); MONO # 0.9 (0.1-0.6); MONO % 10.5 % (1.7-9.3); PLATELET COUNT 222 K/mm3 (130-400); RED BLOOD COUNT 3.03 M/mm3 (4.10-5.30); REDCELL DISTRIBUTION WIDTH-CV 18.6 % (11.5-14.5)
[2020-10-22 06:12] LABS: HEMATOCRIT 34.4 % (37.0-47.0)
[2020-10-22 06:22] LABS: ALBUMIN 3.6 gm/dL (3.5-5.0); CALCIUM 9.4 mg/dL (8.4-10.2); CREATININE, serum 3.02 (0.52-1.25); PHOSPHOROUS 2.3 mg/dL (2.5-4.5); POTASSIUM 3.7 mmol/L (3.4-5.0)
--- NOTE | 2020-10-22 08:00 | NUR ---
Patient sitting up on the edge of bed. A&Ox3. VSS 1L NC O2. No reported SOB. IV CDI. Fistula NUNO CDI. Denies pain and discomfort. No further needs expressed from the patient. Call light within reach.
--- NOTE | 2020-10-22 11:15 | NUR ---
Bedside thoracentesis with Dr Santiago. Patient tolerated well. VS monitored post op. Banaid applied, site CDI. Reported discomfort, no SOB. No further needs expressed from the patient. Call light within reach
[2020-10-22 11:19] LABS: GLUCOSE,PLEURAL FLUID 118 mg/dL; TOTAL PROTEIN,PLEURAL FLUID 2.2 gm/dL
[2020-10-22 11:30] LABS: PLEURAL FLUID RBC 9000 /mm3 (0-0); PLEURAL FLUID WBC 292 /mm3
[2020-10-22 11:32] LABS: PLEURAL FLUID APPEARANCE CLOUDY; PLEURAL FLUID COLOR PINK
--- NOTE | 2020-10-22 18:20 | NUR ---
Patient had an uneventful day. A&Ox3. VSS 1L NC O2. IV CDI. Fistula CDI. Patient had a thoracentesis and tolerated well. Denies pain and discomfort. Patient has a productive cough. Patient is hoping to go home tomorrow after dialysis. No further needs expressed from the patient. Call light within reach
--- NOTE | 2020-10-22 19:33 | NUR ---
SOCIAL WORK PLEASE SEE PATIENT REGARDING WHERE SHE IS TO BUSINESS SPECIALIST HER WALKER. SHE STATED SHE WOULD PREFER TO PICK IT UP IN [place].
[2020-10-23 03:41] VITALS: BP 138/79; PULSE 77; TEMP 98.4
[2020-10-23 06:49] LABS: BASO # 0.1 (0.0-0.2); BASO % 0.6 % (0.0-2.0); EOS # 0.4 (0.0-0.7); EOS % 4.1 % (0-4.0); GRAN # 5.9 (1.4-6.5); GRAN % 65.7 % (42.2-75.2); HEMOGLOBIN 10.8 g/dl (12.5-16.0); LYMPH # 1.9 (1.2-3.4); LYMPH % 21.3 % (20.0-51.0); MEAN CELL VOLUME 111 fl (80.0-100.0); MEAN CORPUSCULAR HEMOGLOBIN 35 pg (27.0-31.0); MEAN CORPUSCULAR HGB CONC 32 g/dl (33.0-37.0); MEAN PLATELET VOLUME 9.8 fl (7.4-10.4); MONO # 0.7 (0.1-0.6); PLATELET COUNT 241 K/mm3 (130-400); RED BLOOD COUNT 3.09 M/mm3 (4.10-5.30); REDCELL DISTRIBUTION WIDTH-CV 17.7 % (11.5-14.5)
[2020-10-23 06:53] LABS: HEMATOCRIT 34.3 % (37.0-47.0)
[2020-10-23 07:16] LABS: ALBUMIN 3.5 gm/dL (3.5-5.0); CALCIUM 9.2 mg/dL (8.4-10.2); CREATININE, serum 4.88 (0.52-1.25); POTASSIUM 3.9 mmol/L (3.4-5.0)
[2020-10-23 07:45] VITALS: BP 124/74; PULSE 79; TEMP 97.3
--- NOTE | 2020-10-23 08:40 | NUR ---
Pt taken to dialysis via WC at this time.
--- NOTE | 2020-10-23 09:32 | NUR ---
I agree w/student nurse's assessment. Continuing to monitor.
[2020-10-23] MEDS ORDERED: MONODOX100 PO (10:28)
--- NOTE | 2020-10-23 11:12 | NUR ---
Student went to check on pt. She is still in dialysis and reclining in chair. She does not report any pain and says she is expecting her granddaughter.
--- NOTE | 2020-10-23 13:08 | NUR ---
WUSN charting reviewed, agree with documentation and findings.
--- NOTE | 2020-10-23 13:13 | NUR ---
Pt returned from dialysis. Was sitting up on the side of the bed eating and visiting with granddaughter. Medications were given and she is planning to discharge after she finishes her lunch.
--- NOTE | 2020-10-23 13:30 | NUR ---
Patient discharging home with family and home health. Educated on when to call provider. Educated on nwe medication and when to take, dose given prior to discharge. All questions answered. Grand daughter in room. Denies further needs at this time. Patient out by wheelchair.
--- NOTE | 2020-10-23 14:02 | NUR ---
The patient discharged home today, 10/23 with [facility] out of [place]. PT/OT/Nursing services. Discharge orders faxed. The patient was needing a FWW. The patient chose [facility] Home Medical. AHMET fax referral. Shira with [facility] reports that Medicare has purchased a walker for the patient 03/2016 and she will not be eligible for another walker until 03/2021. The patient would have to pay $147 for the walker. AHMET met with the patient. She would like to send the order to [facility] in [place]. The patient reports the walker would cost $123 at that location and that she would pick it up on Friday, 10/25. AHMET faxed referral and contacted CME and they will be able to accomodate the patient's need for the walker. There are no additional needs.
== END 2020-10-23 13:30 | disposition home health service (06) | DRG 291 ==
LOC: COL.ER 10:37 → ICU 13:13 → MEDICAL 10-21 03:45
PROVIDERS: Emergency Medicine; Internal Medicine Pulmonary Disease; ADMIT Internal Medicine Nephrology
PROC: 5A1D70Z Performance of Urinary Filtration, Intermittent, Less than 6 Hours Per Day (ICD-10-PCS; 2020-10-20)
PROC: 0W9900Z Drainage of Right Pleural Cavity with Drainage Device, Open Approach (ICD-10-PCS; principal; 2020-10-22)
DX: I13.2 Hypertensive heart and chronic kidney disease with heart failure and with stage 5 chronic kidney disease, or end stage renal disease (principal); N18.6 End stage renal disease; J96.01 Acute respiratory failure with hypoxia; J18.9 Pneumonia, unspecified organism; I50.22 Chronic systolic (congestive) heart failure; J90 Pleural effusion, not elsewhere classified; E44.0 Moderate protein-calorie malnutrition; E03.9 Hypothyroidism, unspecified; J44.9 Chronic obstructive pulmonary disease, unspecified; D63.1 Anemia in chronic kidney disease; Z20.822 Contact with and (suspected) exposure to COVID-19; F32.9 Major depressive disorder, single episode, unspecified; M19.90 Unspecified osteoarthritis, unspecified site; F41.9 Anxiety disorder, unspecified; M54.9 Dorsalgia, unspecified; Z79.82 Long term (current) use of aspirin; Z79.02 Long term (current) use of antithrombotics/antiplatelets; Z99.2 Dependence on renal dialysis; Z87.891 Personal history of nicotine dependence; Z88.2 Allergy status to sulfonamides
CPT/HCPCS: J0456; J0696; J1644; J2270; J2405; J2930; J7030; J7050; Q5105

== ENCOUNTER 2021-02-19 11:36 | Inpatient (IN) | payer MEDICARE, BC ==
[~2021-02-19] VITALS: Ht 157.5 cm; Wt 49.4 kg
[~2021-02-19 11:36] MED LIST changes: +LIPITOR 40MG TA40 MG PO; +MONODOX100 PO; +NATURE'S BLE1000 MCG PO; +ONE-A-DAY ESSE1 EACH PO; +RENVELA800 MG PO; +TRIPHROCAPS SOFT1 MG PO
[2021-02-19 12:30] LABS: HEMOGLOBIN 13.3 g/dl (12.5-16.0); MEAN CELL VOLUME 112 fl (80.0-100.0); MEAN CORPUSCULAR HEMOGLOBIN 36 pg (27.0-31.0); MEAN CORPUSCULAR HGB CONC 32 g/dl (33.0-37.0); MEAN PLATELET VOLUME 10.2 fl (7.4-10.4); PLATELET COUNT 221 K/mm3 (130-400); RED BLOOD COUNT 3.67 M/mm3 (4.10-5.30); REDCELL DISTRIBUTION WIDTH-CV 15.4 % (11.5-14.5)
[2021-02-19 12:53] LABS: ANISOCYTOSIS 2+; BAND 8 % (0-10); BASOPHIL 1 % (0-2); HYPOCHROMIA 1+; LYMPHOCYTE 11 % (20.0-51.0); NEUTROPHILS 68 % (42.0-75.2); PLATELET ESTIMATE NORMAL (NORMAL)
[2021-02-19 12:58] LABS: INR 1.1 (0.8-3.0)
[2021-02-19 13:04] LABS: ALBUMIN 4.3 gm/dL (3.5-5.0); BILIRUBIN,TOTAL 0.8 mg/dL (0.0-1.0); C-REACTIVE PROTEIN 3.4 mg/dL (0.0-0.9); CALCIUM 10.3 mg/dL (8.4-10.2); CREATININE, serum 5.12 (0.52-1.25); MAGNESIUM 2.5 mg/dL (1.6-2.3); POTASSIUM 4.4 mmol/L (3.4-5.0); TOTAL PROTEIN 7.6 gm/dL (6.4-8.2)
[2021-02-19] MEDS ORDERED: PAXIL 20MG20 MG PO (13:49)
[2021-02-19] MEDS ORDERED: FIORICET 325 MG1 TA1 PO (13:59)
[2021-02-19] MEDS ORDERED: PHOSLO667 MG PO (14:00)
[2021-02-19] MEDS ORDERED: FLEXERIL 1010 MG/TAB PO (14:01)
[2021-02-19] MEDS ORDERED: LASIX 40MG TABL40 MG PO (14:02)
[2021-02-19] MEDS ORDERED: LASIX 80MG TABL80 MG PO (14:03)
[2021-02-19] MEDS ORDERED: NEURONTIN300 MG/CAP PO (14:03)
[2021-02-19] MEDS ORDERED: ZOFRAN 4MG T4 MG/TAB PO (14:04)
[2021-02-19] MEDS ORDERED: ALBUTEROL0.83 MG/ML IH (14:04)
[2021-02-19] MEDS ORDERED: HYCODAN 1.5 MG480 ML PO (14:04)
[2021-02-19] MEDS ORDERED: ROXICODONE15 MG PO (14:05)
[2021-02-19] MEDS ORDERED: ULTRAM 50MG TAB50 MG PO (14:05)
[2021-02-19] MEDS ORDERED: MIRALAX PA17 GM/Dose PO (14:05)
--- NOTE | 2021-02-19 18:13 | NUR ---
Patient tolerated 1 hour of HD tx with no fluid removal due to hypotension. Bp low as 77/55 & resolved with 100 mL fluid bolus. Patient without any c/o's dizziness but continued to vomit liquid brown emesis with flex throughout tx, approx. 200 mL. Zofran was administered during HD tx without any relief. 164[address] Tx dc'd early per Dr. Eaton for vomiting & poor BFR during tx due to increased arterial needle pressures, troubleshooting unsuccessful.
[2021-02-19 18:21] VITALS: BP 104/56; PULSE 87; TEMP 98.5
--- NOTE | 2021-02-19 19:37 | NUR ---
Patient admitted to the medical floor for continuous N/V. Report taken from FRANCESCA Mcdonald. Patient taken straight to dialysis from ED. Unable to complete. Bedros notified. Admission paperwork completed. Upon initial assessment normal S1 and S2 sounds present, radial pulses +2 bilaterally, pedal pulses +1 bilaterally, +3 edema noted on BLE, generalized bruising also noted. Lungs clear to auscultation. Bowel sounds normal and present in the upper abdominal quadrants, bowel sounds in lower quadrants hypoactive. Abdomen is distended, but soft. Hernia noted. Patient answers orientation questions correctly, but is lethargic. Patient has continued to vomit brown liquid. PRN zofran and phenergan given, vommiting has continued. Patient C/O aching back pain rated a 10/10. Bedros updated on patient's status. Orders for PRN Dilaudid placed. Dilaudid given. Orders placed for NG tube with intermittent suctioning. VSS. Call light in reach.
[2021-02-19 21:16] VITALS: BP 118/56; PULSE 93; TEMP 98.2
[2021-02-20] VITALS (8 sets, daily range): BP systolic 92–106; BP diastolic 47–58; PULSE 88–106; TEMP 97.6–98.4
--- NOTE | 2021-02-20 00:35 | NUR ---
Pt alert and oriented. Pt having continuous bouts of brown liquid emesis with intermittent formed material. Pt reports pain in back and requests anxiety medications. Pt unable to tolerate PO medications, fluids, or food. Pt made to be NPO. Pt has 16f NG tube placed at 50cm. Chest x-ray requested to confirm placement. Pt's son present at bedside. Pt has generalized bruising over all extremities. Pt's feet edematous, 2+ pitting noted.
--- NOTE | 2021-02-20 00:51 | NUR ---
Pt's abdomen distended with hernia, pt reports hernia has been present since 2019. Pt has visible peristalsis.
--- NOTE | 2021-02-20 01:39 | NUR ---
Pt bladder scanned, 88mls documented, no foster required at this time. Pt reported lower back pain, diastolic pressure at 47, no medication given at this time. Back rub with lotion provided and alongside therapeutic communication.
--- NOTE | 2021-02-20 04:59 | NUR ---
Pt had bouts of emesis continously for first part of shift. Pt's emesis was brown, no coffee-ground like emesis noted. Pt had NG placement, verified with chest x-ray. Pt nausea/vomiting has decreased since placement of NG. Pt reports pain in lower back, managed with IV pain medication and back massage. Pt able to rest this shift, free from injury this shift. Pt able to converse freely and express needs.
[2021-02-20 05:54] LABS: HEMATOCRIT 38.5 % (37.0-47.0); HEMOGLOBIN 12.5 g/dl (12.5-16.0); MEAN CELL VOLUME 114 fl (80.0-100.0); MEAN CORPUSCULAR HEMOGLOBIN 37 pg (27.0-31.0); MEAN CORPUSCULAR HGB CONC 33 g/dl (33.0-37.0); MEAN PLATELET VOLUME 10.1 fl (7.4-10.4); PLATELET COUNT 208 K/mm3 (130-400); RED BLOOD COUNT 3.37 M/mm3 (4.10-5.30); REDCELL DISTRIBUTION WIDTH-CV 15.9 % (11.5-14.5)
[2021-02-20 06:08] LABS: ALBUMIN 3.9 gm/dL (3.5-5.0); CALCIUM 9.8 mg/dL (8.4-10.2); CREATININE, serum 4.94 (0.52-1.25); PHOSPHOROUS 6.3 mg/dL (2.5-4.5); POTASSIUM 4.5 mmol/L (3.4-5.0)
--- NOTE | 2021-02-20 06:41 | NUR ---
PT SPO2 ASSESSED ON RA. 97%, LEFT OFF OXYGEN
[2021-02-20 08:01] LABS: BAND 62 % (0-10)
[2021-02-20 08:02] LABS: LYMPHOCYTE 17 % (20.0-51.0); METAMYELOCYTE 1 % (0-0); NEUTROPHILS 10 % (42.0-75.2); PLATELET ESTIMATE NORMAL (NORMAL)
[2021-02-20 08:04] LABS: PATHOLOGY DIFF REVIEW OK
--- NOTE | 2021-02-20 10:38 | NUR ---
SW's met the patient and her son, Edwin (ph#[phone]), to discuss discharge plan. The patient lives alone in [place]. Edwin and her other son, Svetlana (ph#[phone]), also live in [place]. She reports independence with ADLs and has a walker. She states that she has in home services from [facility] out of [place] for housekeeping. She states that they discharged her from their SN/OT/OT services. She reports that her sons have started taking turns staying with her at night for a few weeks now. The patient's PCP is Dr. Dereck Adrian and she receives her medications from [facility]. She reports no difficulties obtaining her meds. The patient's DPOA-HC is in EMR and it designates her sons: Edwin and Svetlana. Edwin reports that they hope and that the goal is for the patient to return back home upon discharge. AHMET asked Erika RN with Dr. Eaton, for PT/OT to be ordered. SW to continue to follow. *Discharge plan: Tentatively home. Awaiting therapy's recs*
--- NOTE | 2021-02-20 11:26 | NUR ---
Scheduled medications given. Shift assessment preformed. NG tube in place, with low intermittent suctioning. Brown fluid with sediment present. Patient C/O aching back pain rated an 8/10. PRN Dilaudid given as ordered. Chest and abdominal xray completed. Small bowel obstruction and pleural effusions noted. Santiago consulted. BP continue to be soft. Angelito is aware. Patient denies any further pain, discomfort, or needs at this time. Son at the bedside. Call light in reach. Fall precautions in place.
--- NOTE | 2021-02-20 19:35 | NUR ---
Patient has had an eventful day.
--- NOTE | 2021-02-20 19:37 | NUR ---
Patient has had an eventful day. Gastrograffin test in progress. NG tube clamped. Patient has D10W and imulsified fats running as ordered. Patient has been C/O back pain that is aggravated by movement. PRN dilaudid given as ordered. Thoracentesis to be preformed tommorow AM. PRN Xanax given for anxiety. Patient denies any further needs at this time. Call light in reach. Son at the bedside.
--- NOTE | 2021-02-20 20:23 | NUR ---
Pt's blood pressure value low, 94/57. Reconfirmed with manual BP, 96/48. Will continue to monitor.
--- NOTE | 2021-02-20 22:34 | NUR ---
PT ALERT AND ORIENTED, ANXIOUS AND ASKING FOR PAIN MEDICATIONS WELL PRN ANXIETY MEDICATION. RE-INFORCED TIME OF PRN ANXIETY MEDICATION ADMINISTRATION. PT BLOOD PRESSURE 96/48 MANUALLY, HELD PRN IV PAIN MEDICATION. PROVIDED BACK AND SHOULDER MASSAGE. CONTACTED PROVIDER FOR LIDOCAINE PATCH ORDER AND K-PAD. PT HAS EDEMA IN BILATERAL FEET, NONE PITTING. PT'S SKIN IS LOOSE, DRY. PT HAS HERNIA, LESS DISTENTION NOTED THIS SHIFT. BROWN LIQUID REMOVED VIA NG TUBE AT LIS. PT HAS ACTIVE BOWEL SOUNDS IN RIGHT UPPER QUADRANT. HYPOACTIVE BOWEL SOUNDS IN LEFT QUADRANTS AND RIGHT LOWER QUADRANT. PT'S FEET ARE COOL, REDDENED. CAP REFILL <3S AND PULSES 2+ IN DORSALIS PEDIS AND POSTERIOR TIBIAL. COVERED LOWER EXTREMETIES WITH BLANKET. PT CALL LIGHT WIHTIN REACH.
--- NOTE | 2021-02-20 22:41 | NUR ---
PT REFUSING HOSPITAL GOWN.
--- NOTE | 2021-02-20 23:52 | NUR ---
DURING VITAL SIGN ASSESSMENT FOR 0000, PT SATURATIONS DROPPED TO 86-88% ON 3L VIA NASAL CANNULA. PT NOW ON 5L VIA SIMPLE MASK, SATURATIONS AT 92-93%.
[2021-02-21] VITALS (205 sets, daily range): BP systolic 76–165; BP diastolic 28–72; PULSE 76–150; TEMP 97.6–98.3; O2SAT 53–100
--- NOTE | 2021-02-21 00:44 | NUR ---
PT SATURATION RECHECKED, 93% ON 5L VIA SIMPLE MASK. NO ALTERATIONS MADE AT THIS TIME.
--- NOTE | 2021-02-21 03:17 | NUR ---
Patient's BP 69/[address] Eaton notified and orders to continue ordered fluids and to monitor. Patient has no complaints of chest pain and is cognitively intact. NG tube still draining brown liquid.
--- NOTE | 2021-02-21 04:04 | NUR ---
PT'S BLOOD PRESSURE RECHECKED MANUALLY, 68/42. PROVIDER NOTIFIED ONCE AGAIN ON LOW PRESSURES, PT FEELING OF IMPENDING DOOM. NATIONAL INVESTIGATIVE PRODUCER, SAMEER NOTIFIED. DR. KERR WISHED TO SPEAK TO NATIONAL INVESTIGATIVE PRODUCER. NEW ORDERS RECEIVED FOR IV FLUID BOLUS AND SOLU-CORTEF, GIVEN NOW. LATEST BP 79/37. CAP REFILL <3S, DISTAL PULSES PALPATED. WILL CONTINUE TO MONITOR.
--- NOTE | 2021-02-21 04:07 | NUR ---
Patient's son, Edwin, notified of patient's change in status. Patient currently resting in bed with fluid bolus infusing. Blood pressures slowly trending up. Will continue to monitor.
--- NOTE | 2021-02-21 06:26 | NUR ---
INCREASED FLUIDS FROM NG TUBE NOTED. DRAINAGE BROWN, APPEARS REHAB DIRECTOR THAN PREVIOUS DRAINAGE THIS SHIFT.
--- NOTE | 2021-02-21 06:30 | NUR ---
PT BLADDER SCANNED, 194MLS RECORDED BY SCANNER. NO MACEDO INSERTION AT THIS TIME. PT REPORTS NOT NEEDING TO VOID.
[2021-02-21 07:10] LABS: HEMOGLOBIN 11.8 g/dl (12.5-16.0); MEAN CELL VOLUME 114 fl (80.0-100.0); MEAN CORPUSCULAR HEMOGLOBIN 37 pg (27.0-31.0); MEAN CORPUSCULAR HGB CONC 32 g/dl (33.0-37.0); MEAN PLATELET VOLUME 10.8 fl (7.4-10.4); PLATELET COUNT 200 K/mm3 (130-400); RED BLOOD COUNT 3.22 M/mm3 (4.10-5.30); REDCELL DISTRIBUTION WIDTH-CV 15.3 % (11.5-14.5)
[2021-02-21 07:15] LABS: HEMATOCRIT 36.7 % (37.0-47.0)
[2021-02-21 07:21] LABS: ALBUMIN 3.5 gm/dL (3.5-5.0); CALCIUM 8.5 mg/dL (8.4-10.2); CREATININE, serum 5.93 (0.52-1.25); PHOSPHOROUS 6.9 mg/dL (2.5-4.5)
[2021-02-21 09:44] LABS: PLATELET ESTIMATE NORMAL (NORMAL)
--- NOTE | 2021-02-21 11:05 | NUR ---
Pt awake upon entry, has C/O pain in lower back. Talkative. BP is being monitored currently 80s/30s. Abdomen distended and soft. Shift assessment complete, left Pt in bed, call light in reach.
--- NOTE | 2021-02-21 13:45 | NUR ---
The patient is to transfer down to the ICU.
[2021-02-21 15:19] LABS: HEMOGLOBIN 11.4 g/dl (12.5-16.0); MEAN CELL VOLUME 115 fl (80.0-100.0); MEAN CORPUSCULAR HEMOGLOBIN 36 pg (27.0-31.0); MEAN CORPUSCULAR HGB CONC 32 g/dl (33.0-37.0); MEAN PLATELET VOLUME 10.6 fl (7.4-10.4); PLATELET COUNT 199 K/mm3 (130-400); RED BLOOD COUNT 3.14 M/mm3 (4.10-5.30); REDCELL DISTRIBUTION WIDTH-CV 15.1 % (11.5-14.5)
[2021-02-21 15:28] LABS: ALBUMIN 3.3 gm/dL (3.5-5.0); BILIRUBIN,TOTAL 0.7 mg/dL (0.0-1.0); CALCIUM 8.2 mg/dL (8.4-10.2); POTASSIUM 4.3 mmol/L (3.4-5.0)
[2021-02-21 15:33] LABS: CREATININE, serum 6.31 (0.52-1.25)
[2021-02-21 16:23] LABS: HYPOCHROMIA 1+
[2021-02-21 16:26] LABS: ANISOCYTOSIS 1+
[2021-02-21 16:32] LABS: INR 1.4 (0.8-3.0); PROTHROMBIN TIME 15.1 SECONDS (9.7-12.8)
[2021-02-21 16:51] LABS: PARTIAL THROMBOPLASTIN TIME 28.2 SECONDS (26.0-37.0)
[2021-02-21 16:59] LABS: BAND 16 % (0-10); LYMPHOCYTE 15 % (20.0-51.0); METAMYELOCYTE 21 % (0-0); MYELOCYTE 14 % (0-0); NEUTROPHILS 30 % (42.0-75.2)
[2021-02-21 17:00] LABS: ANISOCYTOSIS 1+; HYPOCHROMIA 1+; PLATELET ESTIMATE NORMAL (NORMAL)
--- NOTE | 2021-02-21 17:00 | NUR ---
Pt's son and daughter at bedside
[2021-02-21 17:14] LABS: BAND 48 % (0-10)
[2021-02-21 17:15] LABS: NEUTROPHILS 27 % (42.0-75.2)
[2021-02-21 17:16] LABS: LYMPHOCYTE 17 % (20.0-51.0)
[2021-02-21 17:19] LABS: METAMYELOCYTE 4 % (0-0)
[2021-02-21 17:38] LABS: COLLECTION METHOD CLEAN CATCH
[2021-02-21 18:02] LABS: BUDDING YEAST Present /hpf; MUCOUS Present /lpf; PH 5 (5-8); URINE APPEARANCE Cloudy; URINE BACTERIA Rare /hpf; URINE BILIRUBIN Positive (NEGATIVE); URINE BLOOD Negative (NEGATIVE); URINE COLOR Amber; URINE GLUCOSE Negative (NEGATIVE); URINE KETONE Negative (NEGATIVE); URINE LEUKOCYTE ESTERASE Trace (NEGATIVE); URINE NITRATE Negative (NEGATIVE); URINE PROTEIN(semi-quant) 2+ (NEGATIVE); URINE UROBILINOGEN Negative (NEGATIVE); URINE WBC 20-50 /hpf
--- NOTE | 2021-02-21 18:21 | NUR ---
1410: MD Angelito on unit stating pt can have central line but must be IJ or Femoral d/t hemodialysis complicaitions of subclavian lines 1420: pt arrived. Pt mumbling, unable to answer questions or follow commands. Hypoxia noted (87%) on 5L OM - Carmen,RT called for assistance (Julieta,RN and TamaraRN already in room with myself, Trung,RN and LinoRN (HouseSupervisor). 15L/min Oxymask maintaining SpO2 @ 90% Hypotension noted and Levophed initated through peripheral line per MD Angelito. MD Reid standing by in hospital for central line placement - paged upon pt's arrival 1430: MD Angelito on unit. Anesthesia and MD Jack paged for intubation for airway protection 1440: Pt's son in room with MD Angelito - consent obtained for central line, arterial line placement & intubation 1441: MD Reid stating central line insertion after TimeOut completed 1444: Anesthesia Jacob here for intubation and arterial line insertion. Timeout completed for intubation 1450: ETT secured, CO2 color change present, lung sounds present in all lobes, coarse sounding, 22cm at gum. NG tube secured to ETT. 1456: Central line complete, Vasopressors moved to central line. Xray called for ETT placement 1530: Arterial line to right femoral artery completed after timeout for arterial line insertion.
--- NOTE | 2021-02-21 18:41 | NUR ---
Levophed and Epinephrine gtts tirated per protocol. Both Levophed and Epinephrine drips are at their maximum dosages.
--- NOTE | 2021-02-21 20:00 | NUR ---
Assessment complete and charted. Remains on vent with sedation and pressors.
[2021-02-21 20:10] LABS: ARTERIAL BLD GAS O2 SATURATION 98.9 % (92-100); ARTERIAL BLD GAS TCO2 CT 29.8; ARTERIAL BLOOD GAS BASE EXCESS 5.3 (-2-2); ARTERIAL BLOOD GAS HCO3 28.7 meq/L (22-26); ARTERIAL BLOOD GAS PCO2 37.2 mmHg (35-45); ARTERIAL BLOOD GAS pH 7.51 (7.35-7.45)
[2021-02-21 20:11] LABS: ARTERIAL BLOOD GAS PO2 171.1 mmHg (80-100)
--- NOTE | 2021-02-21 20:13 | NUR ---
PATIENT TOLERATED 3 HOUR HD TX WITH NO FLUID REMOVAL, GIVEN 900 ML OF FLUID.
[2021-02-22] VITALS (46 sets, daily range): BP systolic 81; BP diastolic 34; PULSE 75; TEMP 97.9; O2SAT 80–99
--- NOTE | 2021-02-22 04:03 | NUR ---
Contacted [facility] and spoke with Ameena. Patient history reviewed with [facility]. Requested to place saline drops in patient's eyes and cover with wet wash cloths and place ice packs in axilla and groin until [facility] speaks with family. [facility] will return call. Referral number: [id number]
--- NOTE | 2021-02-22 05:26 | NUR ---
Received call from Marilyn at [facility] that patient is not a candidate for donation at this time. Body may be released to home.
--- NOTE | 2021-02-22 07:10 | NUR ---
223: Spoke with Dr. Page regarding decrease in BP despite max on pressors. Orders to increase Epi by 0.01 up to 1 received and to call family regarding change. 2239: Family contacted and son on way in. 0237: Patient at this time. Pronunced by myself and FRANCESCA Felix, Both sons at bedside. Keyana Williams Supervisior aware. 0300: Patient sons request [facility] in [facility]. Williams supervisior aware. 0330: Dr. Eaton updated regarding patient passing. 0400: Patient cleaned and all invasive lines a removed at this time. Left femoral ART line, right femoral TLC, foster, ET tube/vent, NG tube, right AC INT, right forearm INT. 0700: Patient released to [facility] at this time.
[2021-02-22 07:44] LABS: PATHOLOGY DIFF REVIEW OK
== END 2021-02-22 07:00 | disposition expired | DRG 871 ==
LOC: COL.ER 11:36 → MEDICAL 13:51 → ICU 02-21 14:43
PROVIDERS: Family Medicine; Internal Medicine Pulmonary Disease; Nurse Practitioner; ADMIT Internal Medicine Nephrology
PROC: 5A1D70Z Performance of Urinary Filtration, Intermittent, Less than 6 Hours Per Day (ICD-10-PCS; 2021-02-19)
PROC: 0BH17EZ Insertion of Endotracheal Airway into Trachea, Via Natural or Artificial Opening (ICD-10-PCS; principal; 2021-02-21)
PROC: 5A1935Z Respiratory Ventilation, Less than 24 Consecutive Hours (ICD-10-PCS; 2021-02-21)
PROC: 06HM33Z Insertion of Infusion Device into Right Femoral Vein, Percutaneous Approach (ICD-10-PCS; 2021-02-21)
DX: A41.9 Sepsis, unspecified organism (principal); N18.6 End stage renal disease; J96.01 Acute respiratory failure with hypoxia; R65.21 Severe sepsis with septic shock; I50.22 Chronic systolic (congestive) heart failure; I13.2 Hypertensive heart and chronic kidney disease with heart failure and with stage 5 chronic kidney disease, or end stage renal disease; K43.6 Other and unspecified ventral hernia with obstruction, without gangrene; E46 Unspecified protein-calorie malnutrition; E87.2 Acidosis; Z66 Do not resuscitate; J90 Pleural effusion, not elsewhere classified; R64 Cachexia; Z68.1 Body mass index [BMI] 19.9 or less, adult; D63.1 Anemia in chronic kidney disease; J44.9 Chronic obstructive pulmonary disease, unspecified; I48.0 Paroxysmal atrial fibrillation; E03.9 Hypothyroidism, unspecified; M81.0 Age-related osteoporosis without current pathological fracture; M54.9 Dorsalgia, unspecified; F41.9 Anxiety disorder, unspecified; F32.9 Major depressive disorder, single episode, unspecified; I25.2 Old myocardial infarction; F17.210 Nicotine dependence, cigarettes, uncomplicated; Z99.2 Dependence on renal dialysis; Z88.2 Allergy status to sulfonamides
CPT/HCPCS: OP; J0171; J0282; J1170; J1450; J1644; J1720; J2405; J2543; J2550; J2704; J3010; J3370; J7030; J7040; J7050; J7060